=== PATIENT | female | born 2000 | race Caucasian/White ===

== ENCOUNTER 2022-08-16 20:59 | Emergency (ER) | payer OTHER ==
--- NOTE | 2022-08-16 21:10 | NUR ---
PATIENT CALLED TO TRIAGE, NO RESPONSE PATIENT LEFT WITHOUT BEING SEEN BY DR. CHRISTIANSON. NO FURTHER CARE PROVIDED FOR PATIENT.
--- NOTE | 2022-08-16 21:15 | NUR ---
CALLED FOR THE SECOND TIME, NO ANSWER
--- NOTE | 2022-08-16 21:22 | NUR ---
CALLED FOR THE THIRD TIME , NO RESPONSE
== END 2022-08-16 21:10 | disposition left against medical advice (07) ==
LOC: MED 20:59
DX: M25.539 Pain in unspecified wrist (principal)